=== PATIENT | male | born 1990 | race Caucasian/White ===

== ENCOUNTER 2017-04-16 09:02 | Emergency (ER) | payer MEDICAID ==
--- NOTE | 2017-04-16 10:08 | EDM.PDOC ---
ED HPI GENERAL MEDICAL PROBLEM - General Chief Complaint: ENT Problem Stated Complaint: BROKEN TOOTH Time Seen by Provider: 04/16/17 09:51 Source of Information: Reports: Patient History Limitations: Reports: No Limitations - History of Present Illness INITIAL COMMENTS - FREE TEXT/NARRATIVE: This gentleman complains of a toothache for 2 days. He says the pain is getting the extreme. He tried some temporary filling material but that this made it hurt worse. He did use some dense a cane solution dabbed on the tooth last night and that would work for a little while but had to be repeated frequently. - Related Data Allergies Allergy/AdvReac Type Severity Reaction Status Date / Time No Known Allergies Allergy Verified 04/16/17 09:17 Home Meds: Home Meds Escitalopram [Lexapro] 04/16/17 [History] Sucralfate [Carafate] 04/16/17 [History] busPIRone [Buspar] 04/16/17 [History] rOPINIRole [Requip] 04/16/17 [History] risperiDONE 04/16/17 [History] Past Medical History Psychiatric History: Reports: Bipolar, Schizophrenia Social & Family History - Tobacco Use Smoking Status *Q: Current Every Day Smoker Years of Tobacco use: 10 Packs/Tins Daily: 0.5 ED ROS ENT - Review of Systems Review Of Systems: ROS reveals no pertinent complaints other than HPI. ED EXAM, ENT - Physical Exam Exam: See Below Exam Limited By: No Limitations General Appearance: Alert, WD/WN, Mild Distress Mouth/Throat: Other (There is a fractured tooth to the left upper premolar. No evidence of any abscess.) Course - Vital Signs Last Recorded V/S: Last Vital Signs Temp 36.2 C 04/16/17 09:24 Pulse 90 04/16/17 09:24 Resp 14 04/16/17 09:24 BP 153/83 H 04/16/17 09:24 Pulse Ox 98 04/16/17 09:24 Departure - Departure Time of Disposition: 10:06 Disposition: Home, Self-Care 01 Condition: Fair Clinical Impression: Dentalgia - Discharge Information Referrals: PCP,None [Primary Care Provider] - Additional Instructions: Take Narco 5/325 one or 2 tablets every 4 hours as needed for pain. This medication can cause sedation and impaired driving or operating machinery. Take penicillin VK 500 mg 4 times a day for 10 days. See the dentist tomorrow or as soon as an appointment is available. In the meantime you can still try the benzocaine diffuse diffuse soaked a little piece of cotton placed against the tooth and then put some aluminum foil over to hold it in place. Use the benzocaine sparingly since you can overdose on it if you use too much
== END 2017-04-16 10:57 | disposition home or self-care (01) ==
LOC: JP.ED 09:02
DX: K08.89 Other specified disorders of teeth and supporting structures (principal); F17.210 Nicotine dependence, cigarettes, uncomplicated
CPT/HCPCS: 99283